=== PATIENT | female | born 1980 | race American Indian/Alaskan Native ===

== ENCOUNTER 2018-09-09 03:34 | Outpatient (CLI) | payer OTHER ==
[2018-09-09] MEDS ORDERED: LACTATED RINGERS 500 ML IV ONE (03:56)
[2018-09-09 04:40] LABS: Hematocrit 31.1 % (30.3-42.9); Hemoglobin 9.5 gm/dl (10.1-14.3); Mean Corpuscular HGB Conc 31 % (30-34); Mean Corpuscular Volume 73 fl (79-97); Platelet Count 301 K/mm3 (140-440); Red Blood Count 4.25 M/mm3 (3.65-5.03); Red Cell Distribution Width 19.8 % (13.2-15.2)
[2018-09-09 04:42] VITALS: BP 116/59
[2018-09-09 04:47] LABS: Bilirubin,Urine NEG (Negative); Blood,Urine NEG (Negative); Color,Urine Yellow (Yellow); Mucus,Urine FEW /HPF; Protein,Urine <15 mg/dL mg/dL (Negative); WBC,Urine < 1.0 /HPF (0.0-6.0)
[2018-09-09] MEDS ORDERED: TYLENOL PO STA (05:11)
[2018-09-09 06:52] LABS: Anisocytosis 1+; Basophils % (Manual) 0 % (0.0-1.8); Eosinophils % (Manual) 0 % (0.0-4.3); Platelet Estimate Consistent w Auto; Total Cells Counted 100
== END 2018-09-09 05:50 | disposition home or self-care (01) ==
LOC: TRG 03:34
PROVIDERS: ATTEND Obstetrics & Gynecology
DX: O62.9 Abnormality of forces of labor, unspecified (principal); O09.523 Supervision of elderly multigravida, third trimester; O24.410 Gestational diabetes mellitus in pregnancy, diet controlled; O99.513 Diseases of the respiratory system complicating pregnancy, third trimester; J45.909 Unspecified asthma, uncomplicated; Z3A.36 36 weeks gestation of pregnancy
CPT/HCPCS: 36415; 59025; 81001; 85007; 85025; J7120; 96360

== ENCOUNTER 2018-09-28 15:23 | Inpatient (IN) | payer OTHER ==
[2018-09-28] MEDS ORDERED: PITOCin/NS 20 UNIT/1000ML DRIP 20,000 MILLIUNITS/1,000 ML BAG IV ONE ×2 (17:02→18:21)
[2018-09-28] MEDS ORDERED: XYLOCAINE 2% INFILTRATI ONE ×2 (17:08→18:31)
[2018-09-28] MEDS ORDERED: CYTOTEC PR ONE (17:35)
[2018-09-28] MEDS ORDERED: CYTOTEC ONE (17:39)
[2018-09-28] MEDS ORDERED: STADOL ONE (17:51)
[2018-09-28] MEDS ORDERED: STADOL IV PRN (18:31)
[2018-09-28] MEDS ORDERED: TUCKS PAD TP PRN (18:36)
[2018-09-28] MEDS ORDERED: NORCO 5/325 PO PRN (18:36)
[2018-09-28] MEDS ORDERED: MILK OF MAGNESIA PO PRN (18:36)
[2018-09-28] MEDS ORDERED: ZOFRAN IV PRN (18:36)
[2018-09-28] MEDS ORDERED: LANSINOH TP PRN (18:36)
[2018-09-28] MEDS ORDERED: PHENERGAN PO PRN (18:36)
[2018-09-28] MEDS ORDERED: BENADRYL PO PRN (18:36)
[2018-09-28] MEDS ORDERED: DULCOLAX PR PRN (18:36)
[2018-09-28] MEDS ORDERED: PHENERGAN PR PRN (18:36)
--- NOTE | 2018-09-28 18:39 | History and Physical Report ---
History of Present Illness Date of examination: 09/28/18 Date of admission: 09/28/18 16:01 Chief complaint: Active labor History of present illness: 38 year old female presents in active labor. Patient is a patient of [facility]; no records are available. Patient reports her due date is 10/05/18; gestational age 39 weeks. Patient reports diet controlled GDM during this . Patient denies any other problems during the . No labs are available; these have been ordered upon admission. 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 denies: smoking, alcohol abuse, prescription drug abuse, IV drug use - Obstetrical History Expected Date of Delivery: 10/05/18 Actual Gestation: 39 Week(s) 0 Day(s) : 5 Para: 3 Hx # Term Pregnancies: 3 Number of Pregnancies: 0 Spontaneous Abortions: 0 Induced : 1 Number of Living Children: 3 Medications and Allergies Allergies Allergy/AdvReac Type Severity Reaction Status Date / Time No Known Allergies Allergy Verified 09/09/18 03:56 Active Meds: Active Medications Butorphanol Tartrate (Stadol) 2 mg IV Q2H PRN PRN Reason: Pain , Severe (7-10) Ephedrine Sulfate (Ephedrine Sulfate) 10 mg IV Q2M PRN PRN Reason: Hypotension Oxytocin/Sodium Chloride (Pitocin/Ns 20 Unit/1000ml Drip) 20 units in 1,000 mls @ 125 mls/hr IV DIRECT LANG Lactated Ringer's (Lactated Ringers) 1,000 mls @ 125 mls/hr IV DIRECT LANG Lidocaine (Xylocaine 2%) 20 ml INFILTRATI ONCE ONE Stop: 09/28/18 18:32 Misoprostol (Cytotec) 800 mcg MI ONCE ONE Stop: 09/28/18 17:36 Review of Systems All systems: negative (contractions) - Vital Signs Vital signs: Vital Signs Pulse BP 96 H 126/70 09/28/18 16:35 09/28/18 16:35 Temp Pulse Resp BP Pulse Ox 77 122/58 100 09/28/18 18:35 09/28/18 18:35 09/28/18 16:49 - Physical Exam Abdomen: Positive: normal appearance, soft. Negative: distention, tenderness, guarding, rigidity Genitourinary (Female): Positive: normal external genitalia, normal perenium. Negative: perineal/vulvar lesions Uterus: Positive: enlarged. Negative: tender Anus/Rectum: Positive: normal perianal skin Extremities: Positive: normal. Negative: tenderness, edema - Obstetrical FHR: category 1 Uterine Contraction Monitor Mode: External Cervical Dilatation: 10 Cervical Effacement Percentage: 100 station: -1 Uterine Contraction Pattern: Regular Uterine Contraction Intensity: Moderate Results Result Diagrams: 09/28/18 18:31 All other labs normal. Assessment and Plan A: at 39 weeks gestation. Active labor. Advanced cervical dilation; delivery imminent. Maternal gestational diabetes. P: Admit. Obtain records. Anticipate vaginal delivery.
--- NOTE | 2018-09-28 18:39 | Procedure Note ---
OB Delivery Note - Delivery Date of Delivery: 09/28/18 Surgeon: SIMEON CORNEJO Estimated blood loss: other (250 cc) - Vaginal Delivery presentation: vertex Delivery position: OA Intrapartum events: precipitous labor- <3hr Delivery induction: none Delivery monitor: external FHT, external uterine Route of delivery: Delivery placenta: spontaneous Delivery cord: 3 umbilical vessels Episiotomy: none Delivery laceration: 1st degree Delivery repair: vicryl Anesthesia: none Delivery comments: Spontaneous vaginal delivery at 17:05 of liveborn female infant weighing 8 lb. 1 oz. over first degree perineal laceration with apgars of 8/9. Precipitous labor and delivery. Tight nuchal cord manually reduced. Baby placed immediately skin to skin with mom after , dried, stimulated, and bulb suctioned. 3 vessel cord double clamped and cut after cessation of pulsation. Spontaneous delivery of intact placenta and membranes at 17:56 by randolph mechanism. EBL 250 cc. Pitocin given IV prior to delivery of placenta. EBL 250 cc. Fundus firm and midline. Repair of first degree perineal laceration with 3-0 vicryl. Vaginal sweep negative. No other lacerations noted. Sponge count correct. Mother and baby stable in birthing room.
[2018-09-28] MEDS ORDERED: SODIUM CHLORIDE FLUSH SYRINGE 10 ML IV NR (19:00)
[2018-09-28] MEDS ORDERED: LACTATED RINGERS 1,000 ML IV SCH (19:00)
[2018-09-28] MEDS ORDERED: PITOCin/NS 20 UNIT/1000ML DRIP 20 UNITS/1,000 ML BAG IV SCH (19:00)
[2018-09-28 20:03] LABS: Hematocrit 29.3 % (30.3-42.9); Hemoglobin 9.2 gm/dl (10.1-14.3); Mean Corpuscular HGB Conc 31 % (30-34); Mean Corpuscular Volume 70 fl (79-97); Platelet Count 306 K/mm3 (140-440); Red Blood Count 4.17 M/mm3 (3.65-5.03)
[2018-09-28 20:06] LABS: Red Cell Distribution Width 21.1 % (13.2-15.2)
[2018-09-29 06:43] LABS: Hematocrit 27.5 % (30.3-42.9); Hemoglobin 8.4 gm/dl (10.1-14.3)
--- NOTE | 2018-09-29 09:36 | Progress Note ---
Assessment and Plan A: day 1 S/P spontaneous vaginal delivery. Anemia secondary to and blood loss. P: Supplement with iron. Ambulate. Anticipate discharge tomorrow. Subjective - Subjective Date of service: 09/29/18 Principal diagnosis: day 1 S/P spontaneous vaginal delivery Interval history: day 1 S/P spontaneous vaginal delivery. Doing well. Reports small amount of lochia. Voiding without difficulty, ambulating well, tolerating a regular diet. Patient denies headache, chest pain, cough, shortness of breath, leg pain, or abdominal pain. Patient reports: appetite normal, voiding normally, pain well controlled, flatus, ambulating normally, no dizzy ambulation, no nauseated [place]: doing well Objective - Vital Signs Latest vital signs: Vital Signs Temp Pulse Resp BP Pulse Ox 09/29/18 04:20 98.5 F 76 20 113/53 99 09/28/18 21:50 98.3 F 79 20 117/55 98 09/28/18 20:48 81 135/59 09/28/18 20:35 81 126/59 09/28/18 20:05 80 116/53 09/28/18 19:42 98.4 F 18 09/28/18 19:05 79 129/63 09/28/18 18:35 77 122/58 09/28/18 18:05 102 H 134/72 09/28/18 17:35 89 123/68 09/28/18 17:06 129 H 137/65 09/28/18 16:49 101 H 100 09/28/18 16:44 99 H 98 09/28/18 16:39 108 H 98 09/28/18 16:35 96 H 126/70 Intake and Output 09/28/18 09/29/18 09/29/18 23:59 07:59 15:59 Intake Total 240 Balance 240 Intake: Oral 240 Other: Total, Intake Amount 240 # Voids Void 4 Weight 85.275 kg Estimated Blood Loss 250 - Exam Abdomen: Present: normal appearance, soft. Absent: distention, tenderness, guarding, rigidity Uterus: Present: normal, firm, fundal height below umbilicus. Absent: bogginess, tenderness Extremities: Present: normal. Absent: tenderness, edema - Labs Labs: Abnormal lab results 09/28/18 09/28/18 09/29/18 Range/Units 18:31 22:10 05:59 WBC 12.5 H (4.5-11.0) K/mm3 Hgb 9.2 L 8.4 L (10.1-14.3) gm/dl Hct 29.3 L 27.5 L (30.3-42.9) % MCV 70 L (79-97) fl MCH 22 L (28-32) pg RDW 21.1 H (13.2-15.2) % POC Glucose 106 H (70-105)
[2018-09-29] MEDS ORDERED: FEOSOL PO SCH (10:00)
[2018-09-29] MEDS: FEOSOL PO SCH ×2 (10:31→23:39)
[2018-09-29] MEDS: IBUPROFEN PO SCH ×2 (10:31→16:30)
[2018-09-30] MEDS: IBUPROFEN PO SCH ×2 (06:26→13:00)
[2018-09-30] MEDS: FEOSOL PO SCH (10:03)
--- NOTE | 2018-09-30 15:22 | Progress Note ---
Assessment and Plan A: day 2 S/P . Anemia secondary to and blood loss. P: Discharge patient home. Discussed with patient discharge instructions and warning signs. Advised patient to continue taking her iron supplements at home twice per day and her vitamin once per day. Advised patient to avoid driving, lifting and heavy housework, and intercourse. Advised patient to follow up with her primary OB doctor in 6 weeks (pt. to call their office tomorrow for an appointment). Advised pt. to promptly return if any pro blems. Patient voiced understanding of all instructions. Subjective - Subjective Date of service: 09/30/18 Principal diagnosis: day 2 S/P spontaneous vaginal delivery Interval history: day 2 S/P spontaneous vaginal delivery. Patient wants to go home today. Doing well. Reports small amount of lochia. Voiding without difficulty, ambulating well, tolerating a regular diet. Patient denies headache, chest pain, cough, dizziness, shortness of breath, leg pain, heavy vaginal bleeding, symptoms of depression, or abdominal pain. Patient reports: appetite normal, voiding normally, pain well controlled, flatus, ambulating normally, no dizzy ambulation, no nauseated [place]: doing well Objective - Vital Signs Latest vital signs: Vital Signs Temp Pulse Resp BP Pulse Ox 09/30/18 08:44 98.5 F 77 16 117/52 98 09/30/18 06:26 18 09/29/18 23:29 98.2 F 74 20 108/56 96 09/29/18 16:19 97.7 F 75 20 102/50 97 Intake and Output 09/29/18 09/30/18 09/30/18 23:59 07:59 15:59 Intake Total 480 120 Balance 480 120 Intake: Oral 480 120 Other: Total, Intake Amount 240 120 # Voids Void 1 1 - Exam Cardiovascular: Present: Regular rate, Normal S1, Normal S2, No murmurs Lungs: Present: Clear to auscultation Abdomen: Present: normal appearance, soft. Absent: distention, tenderness, guarding, rigidity Uterus: Present: normal, firm, fundal height below umbilicus. Absent: bogginess, tenderness Extremities: Present: normal. Absent: tenderness, edema
--- NOTE | 2018-09-30 15:26 | Discharge Summary ---
Providers - Providers Date of Admission: 09/28/18 16:01 Date of discharge: 09/30/18 Attending physician: ILENE DOSS None Primary care physician: ILENE DOSS Hospitalization Reason for admission: active labor Delivery: Episiotomy: none Laceration: 1st degree Other procedures: none complications: none Discharge diagnosis: IUP at term delivered baby: female Pertinent studies: Labs Hospital course: Normal hospital course Condition at discharge: Good Disposition: DC-01 TO HOME OR SELFCARE - Discharge Diagnoses (1) Term delivered Status: Acute (2) Anemia due to blood loss Status: Acute Plan - Provider Discharge Summary Activity: routine, no sex for 6 weeks, no heavy lifting 4 weeks, no strenuous exercise Diet: routine Instructions: routine Additional instructions: Continue taking your vitamin once per day at home. Continue taking your iron supplements twice per day at home. Call your doctor immediately for: * Fever > 100.5 * Heavy vaginal bleeding ( >1 pad per hour) * Severe persistent headache * Shortness of breath * Reddened, hot, painful area to leg or breast - Follow up plan Follow up: ILENE DOSS MD [Primary Care Provider] - 6 Weeks Forms: [facility] Discharge Summary, Discharge Signature Page
[2018-09-30 15:55] VITALS: BP 116/46
== END 2018-09-30 16:45 | disposition home or self-care (01) | DRG 807 ==
LOC: TRG 15:23 → LD 16:01 → OB 21:38
PROVIDERS: ADMIT Obstetrics & Gynecology; ATTEND Obstetrics & Gynecology
PROC: 0HQ9XZZ Repair Perineum Skin, External Approach (ICD-10-PCS; principal; 2018-09-28)
PROC: 10E0XZZ Delivery of Products of Conception, External Approach (ICD-10-PCS; 2018-09-28)
DX: O62.3 Precipitate labor (principal); Z37.0 Single live birth; O99.02 Anemia complicating childbirth; D50.0 Iron deficiency anemia secondary to blood loss (chronic); O24.429 Gestational diabetes mellitus in childbirth, unspecified control; O69.81X0 Labor and delivery complicated by cord around neck, without compression, not applicable or unspecified; O70.0 First degree perineal laceration during delivery; Z82.49 Family history of ischemic heart disease and other diseases of the circulatory system; Z83.3 Family history of diabetes mellitus; Z3A.39 39 weeks gestation of pregnancy
CPT/HCPCS: 36415; 82962; 85014; 85018; 85027; 86592; 86706; 86762; 86850; 86900; 86901; 87806; 88305; 88307; G0378; J0595; J2590